=== PATIENT | female | born 1985 | race Caucasian/White ===

== ENCOUNTER 2016-12-16 19:30 | Inpatient (IN) | payer BC, OTHER ==
--- NOTE | 2016-12-16 21:00 | OBADHP ---
Datetime: 12/16/2016 20:56 Extremities - PN: Normal Abdomen - PN: Normal Back - PN: Normal Lungs - PN: Normal Heart - PN: Normal Neurologic - PN: Normal HEENT - PN: Normal General - PN: Normal FHR - Baseline A Provider: 140 Membranes, Provider: Intact Contraction Comments Provider: regular every 3-4 min Comments, ACOG Physical Exam: Gravid Uterus presenting part is vertex No bleeding, no SROM, no LOF IP Chief Complaint: Uterine contractions; Decreased movement; Maternal discomfort NICHD Variability Prov Fetus A: Moderate 6-25bpm NICHD Accel Fetus A IP Provider: [id number] NICHD Decel Fetus A IP Provider: None Dilatation, Provider: 4 Effacement, Provider: 100 Station, Provider: -1 Genitourinary Exam: Normal DTRs - PN: Normal EGA AdmitDate IP: 38.2 IP Adm Impression: Term, intrauterine ; Active labor; Intact Membranes IP Admit Plan: Admit to unit; Initiate labor protocol
[2016-12-16 21:07] VITALS: BMI 22.1
[2016-12-16 22:08] LABS: BASO # 0.1 K/uL (0.0-0.2); BASO % 0.6 % (0.0-2.0); EOS # 0.1 K/uL (0.0-0.7); EOS % 0.5 % (0.0-4.0); HEMATOCRIT 37.5 % (34.0-47.0); LYMPH # 1.7 K/uL (1.0-4.3); LYMPH % 12.1 % (20.0-40.0); MEAN CELL VOLUME 91.4 fl (81.0-99.0); MEAN CORPUSCULAR HEMOGLOBIN 30.1 pg (27.0-31.0); MEAN CORPUSCULAR HGB CONC 32.9 g/dL (33.0-37.0); MEAN PLATELET VOLUME 10.1 fl (7.2-11.7); MONO # 0.7 K/uL (0.0-0.8); NEUT # 11.7 K/uL (1.8-7.0); NEUT % 81.8 % (50.0-75.0); RED CELL DISTRIBUTION WIDTH 13.9 % (11.5-14.5); WHITE BLOOD COUNT 14.3 K/uL (4.8-10.8)
--- NOTE | 2016-12-17 01:00 | OBPN ---
Datetime: 12/17/2016 00:56 IP Progress Impression: Normal progression of labor; Rupture of membranes Contraction Comments Provider: regular every 3-4 min IP Progress Note Comment: Pt had SROM sometime after 12:00 midnight in the tub. There was a vaginial exam with bulging membranes at 12:00 6/100-1 intact wth buldgng bag and this exam showed no membrane s. The SROM was clear with blood tinge Vital Signs Provider: Reviewed Dilatation, Provider: 6 Effacement, Provider: 100 Station, Provider: -1 Datetime: 12/16/2016 20:56 IP Informed Consent Obtain: Vaginal Delivery IP Progress Plan: Continue present management Membranes, Provider: Intact FHR - Baseline A Provider: 140 NICHD Accel Fetus A IP Provider: [id number] NICHD Variability Prov Fetus A: Moderate 6-25bpm NICHD Decel Fetus A IP Provider: None
[2016-12-17] MEDS ORDERED: Fentanyl/Bupivacaine HCl 250 ML EPI ONE (01:16)
[2016-12-17] MEDS ORDERED: Oxytocin 20 units in LR 0 ML IV ONE (03:09)
[2016-12-17] MEDS ORDERED: Lidocaine 1% Inj (20ml) ONE (03:09)
--- NOTE | 2016-12-17 03:27 | OBPN ---
Datetime: 12/17/2016 03:26 IP Progress Impression: Normal progression of labor FHR Category Provider Fetus A: Category I Dilatation, Provider: 9 Effacement, Provider: 100 Station, Provider: 0
--- NOTE | 2016-12-17 05:50 | OBPN ---
Datetime: 12/17/2016 05:47 IP Progress Impression: Normal progression of labor Membranes, Provider: Ruptured Amniotic Fluid Color, Provider: Bloody FHR - Baseline A Provider: 140 IP Fetus A Comments: Category II, Occasional late deceleraton, occasional early deceleraton. Presentation-Admit: Vertex Vital Signs Provider: Reviewed FHR Category Provider Fetus A: Category II NICHD Variability Prov Fetus A: Moderate 6-25bpm Dilatation, Provider: 10 Station, Provider: -1 NICHD Decel Fetus A IP Provider: Early; Late
--- NOTE | 2016-12-17 07:38 | OBDS ---
MATERNAL INFORMATION Delivery Anesthesia: Epidural Estimated Blood Loss (ml): 200 Maternal Complications: Abruptio Placenta Provider Comments: vacuum application: pulled with contractions - total time of vacuum aprox. 35 mins presentng part brought to introitus, vacuum poped off at this tme, second applicatoin attempted, h owever there was loss of suction noted. Baby delivered unasisted from that point. Noted tight body cord and left arm compound presentaton, terminal meconium. cord clamped and cut immedately and baby handed to peds for evaluation. cord gases obtained LABOR SUMMARY EDC: 12/28/2016 00:00 No. Babies in Womb: 0 Attempted: No Labor Anesthesia: Epidural LABOR INFORMATION Reason for Induction: Not Applicable Complete Dilatation: 12/17/2016 04:29 Group B Beta Strep: Negative Antibiotics # of Doses: n/a Antibiotics Time of Last Dose: na Steroids Given: None Reason Steroids Not Administered: Not Applicable MEMBRANES Membranes Rupture Method: Spontaneous Rupture of Membranes: 12/16/2016 00:48 Amniotic Fluid Color: Clear Amniotic Fluid Amount: pt was in tub VAGINAL DELIVERY Episiotomy: None Laceration Extension: Second Degree Laceration Type: Perineal Laceration Repair: Yes Laceration Repair Note: Repaired with 2.0 vicryl Sponge Count Correct: Yes Sharps Count Correct: Yes PRESENTATION/POSITION BABY A Presentation: Cephalic Cephalic Presentation: Vertex IDENTIFICATION/MEDS BABY A ID Band Number: [id number]
[2016-12-17] MEDS ORDERED: Oxycodone/Acetaminophen 5/325 mg Tab PO PRN ×2 (08:26)
[2016-12-17] MEDS ORDERED: Benzocaine/Menthol SPRAY TOP PRN (08:26)
[2016-12-18 00:30] VITALS: BP 95/57; PULSE 68; RESP 18; TEMP 98.1; O2SAT 98
[2016-12-18 07:52] LABS: BASO % 0.3 % (0.0-2.0); EOS # 0.3 K/uL (0.0-0.7); EOS % 1.8 % (0.0-4.0); HEMATOCRIT 30.5 % (34.0-47.0); LYMPH # 3.6 K/uL (1.0-4.3); LYMPH % 22.7 % (20.0-40.0); MEAN CELL VOLUME 91.8 fl (81.0-99.0); MEAN CORPUSCULAR HEMOGLOBIN 30.3 pg (27.0-31.0); MEAN PLATELET VOLUME 9.7 fl (7.2-11.7); MONO # 0.8 K/uL (0.0-0.8); NEUT # 11.1 K/uL (1.8-7.0); NEUT % 70.2 % (50.0-75.0); RED CELL DISTRIBUTION WIDTH 14.3 % (11.5-14.5); WHITE BLOOD COUNT 15.8 K/uL (4.8-10.8)
--- NOTE | 2016-12-18 12:14 | OBPPN ---
Datetime: 12/18/2016 12:12 PP Pain Prov: Within normal limits PP Nausea Prov: Denies PP Flatus Prov: Yes PP Breasts Prov: Normal PP Heart Prov: Normal PP Lungs Prov: Normal PP Abdomen/Uterus Prov: Normal PP Lochia Prov: Normal PP Vulva/Perineum Prov: Normal PP CVA Tenderness Prov: Normal PP Extremities Prov: Normal PP Impression Prov: Normal progression PP Plan Prov: Continue present management PP Progress Note Prov: S/P VAD. patient doing well. Discharge home today. reviewed instructions. IP PP Procedures: None
--- NOTE | 2016-12-18 12:16 | OBDCSUM ---
Datetime: 12/18/2016 12:14 Discharged to, Provider: Home Follow up at, Provider: [facility] or Disch Instr Activity: Normal activity; May be up to bathroom; May be up for meals; May Shower Disch Instr Diet: Regular Discharge Instructions, Provider: Routine instructions given Discharge Diagnosis, Provider: Term Delivered Discharge Time: 12/18/2016 07:00 Follow up in weeks, Provider: 6 weeks Disch Referrals: None Disch Activity Restrictions: No exercising; No lifting; Minimize stair-climbing; No sexual activity; Nothing in vagina - [place], tampons, douche
== END 2016-12-18 21:00 | disposition home or self-care (01) | DRG 774 ==
LOC: H.EROB2 19:30 → H.L&D 21:11 → H.OB/GYN 12-17 09:10
PROVIDERS: ADMIT Obstetrics & Gynecology; ATTEND Obstetrics & Gynecology
PROC: 10D07Z6 Extraction of Products of Conception, Vacuum, Via Natural or Artificial Opening (ICD-10-PCS; principal; 2016-12-17)
PROC: 0KQM0ZZ Repair Perineum Muscle, Open Approach (ICD-10-PCS; 2016-12-17)
PROC: 4A1HXCZ Monitoring of Products of Conception, Cardiac Rate, External Approach (ICD-10-PCS; 2016-12-17)
DX: O45.93 Premature separation of placenta, unspecified, third trimester (principal); O36.8130 Decreased fetal movements, third trimester, not applicable or unspecified; O70.1 Second degree perineal laceration during delivery; O77.0 Labor and delivery complicated by meconium in amniotic fluid; O69.81X0 Labor and delivery complicated by cord around neck, without compression, not applicable or unspecified; Z37.0 Single live birth; Z3A.38 38 weeks gestation of pregnancy